=== PATIENT | female | born 1995 | race Caucasian/White ===

== ENCOUNTER 2024-03-03 08:05 | Emergency (ER) | payer OTHER, MEDICAID, SELFPAY ==
[2024-03-03 08:07] VITALS: BP 108/68
[2024-03-03 08:16] VITALS: BMI 20.7
[2024-03-03 08:21] VITALS: BP 99/64
[2024-03-03] MEDS: NSS 1000 IV (09:02)
[2024-03-03 09:03] VITALS: BP 92/70
[2024-03-03 09:12] LABS: % Basophils 0.3 % (0-2); % Eosinophils 0.2 % (0-6); % Immature Granulocytes 0.6 % (0-0.5); % Lymphocytes 6.2 % (20.5-51.1); % Monocytes 4.3 % (1.7-9.3); % Neutrophils 88.4 % (42.2-75.2); Absolute Immature Granulocytes 0.1 10^3/uL (0-0.05); Absolute Lymphocytes 0.8 10^3/uL (1.2-3.4); Absolute Monocytes 0.6 10^3/uL (0.1-0.6); Absolute Neutrophils 12.1 10^3/uL (1.4-6.5); Hematocrit 32.4 % (37.0-47.0); Hemoglobin 11.3 g/dL (12.0-16.0); Mean Corp Hgb Conc. 34.9 g/dL (33.0-37.0); Mean Corpuscular Hgb 31.7 pg (27.0-31.0); Mean Corpuscular Volume 90.8 fL (81.0-99.0); Mean Platelet Volume 8.4 fL (7.4-10.4); Nucleated Red Blood Cells % 0 %; Platelet Count 258 10^3/uL (130-400); Red Blood Cell Count 3.57 10^6/uL (4.20-5.40); Red Cell Dist. Width 12.7 % (11.5-14.5); White Blood Cell Count 13.6 10^3/uL (4.8-10.8)
[2024-03-03 09:26] LABS: ALT (SGPT) 14 U/L (0-35); AST (SGOT) 19 U/L (14-36); Albumin 3.6 g/dl (3.5-5.0); Alkaline Phosphatase 51 U/L (38-126); Blood Urea Nitrogen 8 mg/dl (7-17); Calcium 8.8 mg/dl (8.4-10.2); Carbon Dioxide 22 mmol/L (22-30); Chloride 105 mmol/L (98-107); Estimated Creatinine Clearance > 125 ml/min; Glucose 92 mg/dl (70-99); Potassium 3.9 mmol/L (3.5-5.1); Sodium 135 mmol/L (135-145); Total Bilirubin 0.2 mg/dl (0.2-1.3); Total Protein 5.9 g/dl (6.3-8.2); eGFR > 60.00
--- NOTE | 2024-03-03 09:55 | ED.GENMED ---
History of Present Illness
General
Chief Complaint: Abdominal Symptoms
Source: patient
Time Seen by Provider: 03/03/24 08:23
History of Present Illness
History of Present Illness:
29-year-old female with past medical history of ADHD, anxiety, bipolar disorder, currently 20 weeks , G1, P0 presenting to the emergency department for evaluation of lower abdominal discomfort, nausea vomiting and diarrhea that all began
acutely around 4 AM. Patient was concerned for possible complication so decided come to the ER today. She is following with [facility] women's [employer]. Had her 20-week appointment earlier this past week without any complications. She denies
any vaginal bleeding or discharge or contractions. No other concerns presently. No other known sick contacts.
Past History
Past History
ED Past Medical History: Asthma and Psychiatric (Depression, suicidal ideations)
ED Past Surgical History: None
Social History
Tobacco: Non-smoker
Alcohol: None
Drug: None
Personal: Single
Living: with family
Review of Systems
Review of Systems
All Other Systems: ROS reviewed and negative except as documented in HPI and ROS
Phy Exam
Physical Exam
Physical Exam:
GENERAL: Alert , in no apparent distress
EYE: clear conjunctiva b/l
HEAD: NCAT
ENT: o/p clr, mmm.
CARDIAC: Regular rate and rhythm .
LUNGS: Clear breath sounds bilaterally, no acute respiratory distress, no wheezes/rales/rhonchi
ABDOMEN: Soft, without focal tenderness, no r/g, no cvat
NEUROLOGICAL: Alert and oriented
SKIN: Warm and dry, skin intact.
MUSCULOSKELETAL: well perfused.
PSYCH: Normal and appropriate interaction.
Scores
Heart Failure Risk
Heart Failure Risk Score: Not Applicable
Heart Score for Chest Pain Patients
STEMI patient?: Not applicable
Withdrawal Assessment of Alcohol
Withdrawal Assessment Completed?: Not applicable
Course
Orders/Labs/Results
Orders:
Orders
03/03/24 08:47
0.9% Sodium Chloride 1000 ml [Nss] 1,000 ml IV BOLUS
03/03/24 09:00
Complete Blood Count/With Diff Urgent
Comprehensive Metabolic Panel Urgent
Abnormal Lab Results
03/03/24
09:00
WBC 13.6 H 10^3/uL
(4.8-10.8)
RBC 3.57 L 10^6/uL
(4.20-5.40)
Hgb 11.3 L g/dL
(12.0-16.0)
Hct 32.4 L %
(37.0-47.0)
MCH 31.7 H pg
(27.0-31.0)
Abs Immat Gran (auto) 0.1 H 10^3/uL
(0-0.05)
Absolute Neuts (auto) 12.1 H 10^3/uL
(1.4-6.5)
Absolute Lymphs (auto) 0.8 L 10^3/uL
(1.2-3.4)
Immature Gran % 0.6 H %
(0-0.5)
Neutrophils % 88.4 H %
(42.2-75.2)
Lymphocytes % 6.2 L %
(20.5-51.1)
Creatinine 0.5 L mg/dL
(0.6-1.0)
Total Protein 5.9 L g/dl
(6.3-8.2)
03/03/24 09:00
03/03/24 09:00
Vital Signs
Initial and Last Documented VS:
Initial Vital Signs
Temp Pulse Resp BP Pulse Ox
98.2 F 96 18 108/68 100
03/03/24 08:07 03/03/24 08:07 03/03/24 08:07 03/03/24 08:07 03/03/24 08:07
Last Documented Vital Signs
Temp Pulse Resp BP Pulse Ox
98.2 F 81 15 103/74 100
03/03/24 08:07 03/03/24 09:14 03/03/24 09:14 03/03/24 10:00 03/03/24 10:15
MDM/Problems Addressed
Differential Diagnosis Includes:
Gastroenteritis, related complication, I do not have concern for surgical abdomen
MDM/Problems Addressed:
29-year-old female presenting to the emergency department for evaluation of sudden onset nausea vomiting and diarrhea that started acutely overnight. Symptoms are mostly under control at this time. Patient's major concern was for related
complication. Nursing staff to check heart tones which measured 168 bpm. I did a quick bedside ultrasound which showed movement as well as a heart rate between 150 and 180 bpm. Patient's abdomen is otherwise reassuring. She is not
having any vaginal bleeding, discharge or contractions. Will check labs and treat with IV fluids. Patient declining anything for pain or nausea. Reassessment following
*Pulse Oximetry
Patient hypoxic: no
*Critical Care Note
Total Time (30-74mins, 75-104mins- exclusive of procedures): Not Applicable
Patient Management
Escalation/DeEscalation of care consider admission/obs:
Patient's labs show a mild leukocytosis which likely correlates more with gastroenteritis. Patient is tolerating p.o. and is in no acute distress. Discussed return precautions with the patient. I did advise the patient to contact her [employer] for
if they would like to see her as an outpatient. She is otherwise stable for discharge home.
ED Attending Note
-
Portions of this chart may have been created with voice recognition software.� Occasional wrong word or��sound alike� substitutions may have occurred due to the inherent limitations of voice recognition software.
Discharge Plan
Departure
Patient Disposition: Home (Routine Discharge)
Date of Disposition: 03/03/24
Time of Disposition: 09:55
Patient with high blood pressure during this ER visit?: No
Discharge Problem:
Nausea and vomiting, Diarrhea
Instructions: Nausea and Vomiting, Adult (DC)
Prescriptions:
No Action
lisdexamfetamine [Vyvanse] 50 MG capsule
50 mg PO DAILY
Citalopram
40 mg PO DAILY
ondansetron 4 MG tablet,disintegrating
4 mg PO TIDPRN PRN (Reason: nausea) Qty: 7 0RF
Referrals:
UNKNOWN - PT DOES,NOT KNOW [Family Provider] -
Interventions
Interventions:
*Risk Screen - Suicide Last Done: 03/03/24 08:07
*General Assessment Last Done: 03/03/24 08:07
*Neglect/Abuse Screening Last Done: 03/03/24 08:07
*Nursing Disposition Last Done: 03/03/24 10:44
XE-Xzynjt-Zuwqisvzvl Assessment Last Done: 03/03/24 08:19
Discharge Date and Time
Discharge Date/Time: 03/03/24 10:45
Print Language: GREENLANDIC
[2024-03-03 10:00] VITALS: BP 103/74
== END 2024-03-03 10:45 | disposition home or self-care (01) ==
LOC: EMR 08:05
PROVIDERS: Physician Assistant Medical; EMERGENCY PHYSICIAN Emergency Medicine
DX: O21.9 Vomiting of pregnancy, unspecified (principal); O26.892 Other specified pregnancy related conditions, second trimester; R19.7 Diarrhea, unspecified; Z3A.20 20 weeks gestation of pregnancy
CPT/HCPCS: 99284; 96360; 80053; 85025